=== PATIENT | female | born 1985 | race Caucasian/White ===

== ENCOUNTER 2021-03-21 09:40 | Emergency (ER) | payer OTHER ==
[~2021-03-21 09:40] MED LIST: NAPROSYN500 MG PO; NORFLEX 100 MG100 MG PO; PREDNISONE 50 M50 MG PO; Voltaren Gel 1 % TOP
[2021-03-21] MEDS ORDERED: SUDAFED 30 MG T30 MG PO (09:57)
[2021-03-21] MEDS ORDERED: FLONASE 0.05% N16 GM (09:57)
== END 2021-03-21 10:08 | disposition home or self-care (01) ==
LOC: ER1 09:40
DX: H65.92 Unspecified nonsuppurative otitis media, left ear (principal); Z88.0 Allergy status to penicillin
CPT/HCPCS: 99282